=== PATIENT | female | born 1995 | race African-American/Black ===

== ENCOUNTER 2018-12-18 17:01 | Emergency (ER) | payer MEDICAID ==
[~2018-12-18] VITALS: Ht 152.4 cm; Wt 79.5 kg
[2018-12-18 17:49] VITALS: BP 118/64
[2018-12-18] MEDS ORDERED: MAALOX/LIDOCAINE/NYSTATIN SUSP 5 ML ORAL.SYG MM ONE (18:30)
== END 2018-12-18 18:37 | disposition home or self-care (01) ==
LOC: EMS 17:03
DX: K12.0 Recurrent oral aphthae (principal); F17.210 Nicotine dependence, cigarettes, uncomplicated